=== PATIENT | male | born 1970 ===

== ENCOUNTER 2020-02-13 16:05 | Outpatient (REF) | payer SELFPAY ==
[2020-02-17 23:55] LABS: SARS-CoV-2 RNA Undetected (Undetected); SARS-CoV-2 Specimen Source Nasopharynx
== END 2020-02-13 16:25 ==
LOC: NCHCN 16:05
PROVIDERS: PCP Family Medicine; Visit Provider Family Medicine
DX: Z11.59 Encounter for screening for other viral diseases (principal)
CPT/HCPCS: U0003